=== PATIENT | female | born 1995 | race Caucasian/White ===

== ENCOUNTER 2019-05-06 07:05 | Emergency (ER) | payer OTHER, SELFPAY ==
[2019-05-06 07:47] LABS: Bilirubin Negative (Negative); Blood, Urine Negative (Negative); Clarity Clear (Clear); Glucose, Urine (Dipstick) Negative (Negative); Leukocyte Trace (Negative); Nitrite Negative (Negative); Protein, Urine (Dipstick) Negative (Neg-Trace); Urobilinogen 0.2 mg/dL (Less than 2)
[2019-05-06 07:48] LABS: Bacteria/HPF Rare-Few HPF (None Seen); RBC/HPF None Seen HPF (0-3); Squamous Epithelial 0-3 HPF (0-3); WBC/HPF 0-3 HPF (0-3)
[2019-05-06 07:49] LABS: Pregnancy Test - Urine (BHCG) Negative (Negative); Pregu Control Background? CLEAR/WHITE (CLR/WHITE); Pregu Control Bar Appear? YES (CONTROL BAR)
[2019-05-06] MEDS ORDERED: Acetaminophen 325 MG TAB ONE (07:51)
== END 2019-05-06 09:10 | disposition home or self-care (01) ==
LOC: NAV ERS 07:05
DX: B34.9 Viral infection, unspecified (principal); F31.9 Bipolar disorder, unspecified; Z77.22 Contact with and (suspected) exposure to environmental tobacco smoke (acute) (chronic)
CPT/HCPCS: 81001; 81025; 87804; 99283

== ENCOUNTER 2024-02-24 22:19 | Emergency (ER) | payer OTHER, SELFPAY | END 2024-02-24 22:54 | disposition home or self-care (01) | LOC: NAV ERS 22:19 | DX: H60.501 Unspecified acute noninfective otitis externa, right ear (principal); Z55.6 Problems related to health literacy | CPT/HCPCS: 99282 ==